=== PATIENT | male | born 1955 | race Caucasian/White ===

== ENCOUNTER 2017-10-24 10:57 | Inpatient (IN) | payer BC ==
[2017-10-24 11:27] LABS: #Basophils 0.1 thou/uL (0.0-0.2); #Eosinphils 0.3 thou/uL (0.0-0.7); #Lymphocytes 2.8 thou/uL (1.20-3.40); #Monocytes 0.9 thou/uL (0.11-0.59); #Neutrophils 7.5 thou/uL (1.40-6.50); %Eosinophils 2.6 % (0.0-10.0); %Lymphocytes 23.8 % (21.0-51.0); %Monocytes 7.6 % (0.0-10.0); %Neutrophils 65.1 % (42.0-75.0); Mean Corpuscular HGB CONC 32.1 g/dL (32.0-36.0); Mean Corpuscular Hemoglobin 31.3 pg (27.0-31.0); Mean Corpuscular Volume 97.3 fl (80.0-94.0); Mean Platelet Volume 9.1 fL (7.4-10.4); Platelet Count 224 thou/uL (130-400); RBC Distribution Width 15.1 % (11.5-14.5); Red Blood Cell (RBC) Count 4.78 mill/uL (4.70-6.10); White Blood Cell (WBC) Count 11.6 thou/uL (4.8-10.8)
[2017-10-24 11:49] LABS: CKMB 1.3 ng/mL (0-6.6)
[2017-10-24] MEDS ORDERED: Aspirin 325 MG TAB ONE (11:49)
--- NOTE | 2017-10-24 11:59 | RAD ---
PORTABLE AP CHEST X-RAY: 10/24/2017 HISTORY: Chest pain and generalized weakness. COMPARISON: 09/19/2015 FINDINGS: Cardiac silhouette and pulmonary vasculature are within normal limits. The lungs are clear. The end otracheal tube has been removed compared to the prior exam, and pleural and parenchymal changes at th e right lung base have resolved. IMPRESSION: 1. No acute cardiopulmonary process. 2. Resolution of pleural and parenchymal changes at the right lung base. POS: MILEY
[2017-10-24 12:39] LABS: Calcium 9.7 mg/dL (7.8-10.44); Chloride 107 mmol/L (98-107); Potassium 4.3 mmol/L (3.5-5.1); Sodium 139 mmol/L (136-145)
[2017-10-24 12:40] LABS: Globulin 3.6 g/dL (2.4-3.5); Glucose 135 mg/dL (80-115); Protein, Total 7.6 g/dL (5.8-8.1)
[2017-10-24 12:41] LABS: Anion Gap 13 mmol/L (10-20); Carbon Dioxide 23 mmol/L (23-31)
[2017-10-24 12:42] LABS: Bilirubin, Total 0.3 mg/dL (0.2-1.2)
[2017-10-24 12:43] LABS: Alkaline Phosphatase 87 U/L (40-150); Calc. Creatinine Clearance 0 mL/min (70-130); Estimated GFR-MDRD 68
[2017-10-24 12:44] LABS: BUN (Urea Nitrogen) 20 mg/dL (8.4-25.7)
[2017-10-24 12:45] LABS: AST (SGOT) 23 U/L (5-34)
[2017-10-24 12:46] LABS: ALT (SGPT) 24 U/L (8-55); CK (CPK) 94 U/L (30-200)
[2017-10-24] MEDS ORDERED: ISOVUE-370 76%-LOCM 1 ML ONE (13:43)
--- NOTE | 2017-10-24 13:55 | CT ---
CTA OF THE THORAX UTILIZING IV CONTRAST WITH PE PROTOCOL AND 3D REFORMATTED IMAGING: INDICATIONS: Chest pain. History of atrial fibrillation, now with indigestion, pain extending into both arms, and hypotension. FINDINGS: No central or segmental pulmonary embolus is evident. There are coronary artery and thoracic aortic calcifications. No focal consolidation, pleural effusion, or pneumothorax is evident. An area of xavier bsegmental atelectasis is seen within the lingula. No enlarged lymph nodes are evident. There is mild fatty infiltration of the liver. The visualized adrenal glands appear within normal li mits. There is scattered degenerative and osteoarthritic change. IMPRESSION: No central or segmental pulmonary embolus demonstrated. POS: MILEY
[2017-10-24] MEDS ORDERED: Enoxaparin Sodium 100 MG/ML SYRINGE ONE (16:15)
[2017-10-24 17:53] LABS: Troponin I 2.131 ng/mL (< 0.028)
[2017-10-24] MEDS ORDERED: Morphine 5 MG/ML SYRINGE SLOW IVP PRN (19:30)
[2017-10-24] MEDS ORDERED: Nitroglycerin 0.4 MG TAB (25 Tab Bottle) SL PRN (19:31)
[2017-10-24] MEDS ORDERED: Ondansetron HCl/PF 4 MG/2 ML Vial SLOW IVP PRN (19:32)
[2017-10-24] MEDS ORDERED: [UNRECOGNIZED DRUG - REMARK] FS SCH ×2 (19:45)
[2017-10-24 20:25] VITALS: BMI 41.1
[2017-10-24] MEDS ORDERED: Enoxaparin Sodium 100 MG/ML SYRINGE SC SCH (21:00)
[2017-10-24] MEDS ORDERED: Enoxaparin Sodium 30 MG/0.3 ML SYRINGE SC SCH (21:00)
[2017-10-24] MEDS: Rosuvastatin 20 MG TAB PO SCH (21:45)
[2017-10-24] MEDS: Zolpidem Tartrate 5 MG TAB PO SCH (21:45)
--- NOTE | 2017-10-25 04:37 | CON ---
DATE OF CONSULTATION: 10/24/2017 HISTORY: Kenyon Gibson is a 62-year-old white male who has been evaluated by Dr. Stevens in the past with abnormal EKG, although this was in 2009. He has had problems with somewhat labile blood pressure recently. He denies any history of rapid heartbeat or chest discomfort. Approximately 10:30 AM today, he noted that his heart was beating very rapidly, he had pressure in his chest and took his blood pressure, it was 93/53 with a pulse of 193. He was somewhat diaphoretic with this and short of breath. Ultimately his family brought him to the hospital here. Soon after he was here , his atrial fibrillation converted to sinus rhythm and I do not think he has given anything specifically for his atrial fibrillation. He was given Lovenox 1 mg per kilograms subcu as well as an aspirin, and intravenous fluids. He states that his chest pressure resolved when his rapid heartbeat went away. PAST MEDICAL HISTORY: Hypertension, which has been difficult to control recently, hyperlipidemia, hypothyroidism, obesity. MEDICATIONS: Fish oil 1000 daily, levothyroxine 50 mcg daily, allopurinol 300 daily, sulfasalazine 500 mg b.i.d., Crestor 20 mg daily, Vascepa 1 gram b.i.d., Edarbi 40 mg daily. ALLERGIES: None. OPERATIONS: None. SOCIAL HISTORY: The patient smokes 1 pack per day. He occasionally drinks. FAMILY HISTORY: Negative for cardiac. PHYSICAL EXAMINATION: VITAL SIGNS: 139/94, pulse of 77. HEENT: PERRL. NECK: Supple. CHEST: Clear. CARDIAC: S1 and S2 are normal, without any S3, S4 or murmurs. ABDOMEN: Normal bowel sounds. Abdomen is quite obese. EXTREMITIES: Revealed no clubbing, cyanosis or edema. NEUROLOGIC: Grossly intact. SKIN: Warm and dry. LABORATORY DATA: EKG revealed atrial fibrillation with fast ventricular response with a rate of 158 per minute, possible old inferior infarct and significant ST segment depression in I and L. After he converted, EKG shows probable Delta wave inV2 through V5 consistent with Ngvak-Prbntfobj-Ukten. No old EKGs are available for comparison. Hemoglobin 15.0, hematocrit 46.5, white count 11,600, platelets 224,000. Chemistry: Sodium 139, potassium 4.3, chloride 107, carbon dioxide 23, BUN 20, creatinine 1.10, troponin I is up to 2.131. TSH is normal. BNP 36.6. IMPRESSION: 1. Hzc-LF-nshmmha elevation myocardial infarction. 2. Atrial fibrillation with fast ventricular response which spontaneously converted to sinus rhythm. With some of his medication changes, it is uncertain if he has been on beta dejuan in the past. 3. 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 4. Hyperlipidemia. 5. Hypothyroidism. 6. Obesity. 7. Smoker. PLAN: Echocardiogram will be performed. The patient will be kept n.p.o. for possible cardiac catheterization in the morning. DION
[2017-10-25 05:51] LABS: Anion Gap 12 mmol/L (10-20); BUN (Urea Nitrogen) 17 mg/dL (8.4-25.7); Calc. Creatinine Clearance 181 mL/min (70-130); Carbon Dioxide 24 mmol/L (23-31); Cardiac Risk 3.7 (Less than 4.5); Chloride 106 mmol/L (98-107); Cholesterol 122 mg/dl (< 200 Desired); Estimated GFR-MDRD Greater than 90; Glucose 99 mg/dL (80-115); HDL Cholesterol 33 mg/dL (>60 Neg Risk); LDL Cholesterol, Calculated 67 mg/dL; Potassium 4.3 mmol/L (3.5-5.1); Sodium 138 mmol/L (136-145); Triglycerides 108 mg/dL (Less than 150); Uric Acid 5.1 mg/dL (3.5-7.2)
--- NOTE | 2017-10-25 05:58 | HP ---
DATE OF ADMISSION: 10/24/2017 CHIEF COMPLAINT: Cardiac arrhythmia with elevated troponins, new onset atrial fibrillation with WPW. HISTORY OF PRESENT ILLNESS: Patient is a 62-year-old male who had had some irregular heartbeats in b lood pressure for several weeks as it turns out, but on this particular episode, his daughter came in this morning, in his home when daughter noticed he was pale and sweating. They were unable to get b lood pressure on him. His heart rate turns out was 180. She called 911, blood pressure with the EMS arriving was 160/90, later dropped down to 93/53, pulse was 193. He had severe indigestion and pain that radiated up into both arms. Patient's risk factors include hypertension, smoking, hyperlipidemi a. He does use aspirin, which was ordered daily, so he has some noncompliance as well. The patient arrived and had self-converted from atrial fibrillation into normal sinus rhythm upon arrival. PAST MEDICAL HISTORY: Includes aforementioned hypertension, hyperuricemia, GERD, dyslipidemia, tobac co abuse, irritable bowel syndrome, hypothyroidism. PAST SURGICAL HISTORY: Negative. PAST PSYCHIATRIC HISTORY: Negative. SOCIAL HISTORY: Drinks socially every week. Denies drug use. Uses tobacco daily, has smoked for 30 years, 1 pack per day. FAMILY HISTORY: His father and had his first UT at 35. ALLERGIES: No known drug allergies. MEDICATIONS ON ADMISSION: Include fish oil 1000 mg 2 a day, levothyroxine 50 mcg q. day, allopurinol 300 mg q. day, sulfasalazine 500 mg b.i.d., Crestor 20 mg at bedtime, Vascepa 1 gram b.i.d., Edarbi 40 mg q. day. REVIEW OF SYSTEMS: Constitutional: Denies fever, chills, malaise. Eyes are negative for blurred vi richard or pain. ENT: Negative for rhinorrhea or sores congestion. Neck: Negative for pain, range of motion or mass. Chest: Negative for coughing, congestion. Heart: Significant for the palpitation s, pain that radiating into his arms, indigestion. Chest: The patient did admit to some shortness o f breath. GI: Negative for nausea, diarrhea, constipation. Musculoskeletal: Negative for myalgias and arthralgias. Skin: Negative for rash or lesions. Neurologic: Negative for focal weakness and mental status changes. Psychiatric: Negative for anxiety, depression. Allergy/immunologic: Negat bebeto for food allergies or environmental allergies. PHYSICAL EXAMINATION: VITAL SIGNS: On admission, blood pressure 111/74, pulse 76, respirations 14, temperature 98.2, pain 5/10, O2 saturation 95% on room air. GENERAL: Obese male, alert, oriented, and cooperative. HEENT: Normocephalic and atraumatic. Pupils are equal, round, and reactive to light. Extraocular m uscles are intact. TMs, nares, pharynx are clear. NECK: Supple, trachea midline, no mass, no bruits. CHEST: Clear to auscultation. HEART: Regular rate and rhythm without murmur at this time. ABDOMEN: Obese, nontender. No organomegaly appreciated. : Deferred. EXTREMITIES: Without clubbing, cyanosis, or edema. Normal range of motion present. SKIN: No rashes or lesions. NEUROLOGIC: Cranial nerves are intact. Mental status clear. Gait and cerebellar function intact. Sensory exam is intact. LABORATORY AND X-RAY FINDINGS: Lab work on admission showed WBC is 11.6, hemoglobin 15.0, hematocrit 46.5 with platelets at 244. D-dimer elevated at 0.55. Sodium 139, potassium 4.3, chloride 107, CO2 of 23, BUN 20, creatinine 1.1, glucose 135, CK-MB 3, initial troponin I 0.03, which they went to 1.1 3 and then at 2.1. TSH is 4.44. Chest x-ray shows no acute disease. EKG shows changes of Frantz-Par kinson-White. ASSESSMENT: 1. He has new onset atrial fibrillation with Bgrcq-Agexdlzch-Umhku. 2. Secondary elevated troponins due to probable demand ischemia. 3. Hypertension. 4. Dyslipidemia. 5. Noncompliance with medicine and tobacco abuse. PLAN: We will do echocardiogram, Cardiology consultation, and serial re-evaluation. He will be cont inued on Lovenox 1 mg/kg q.12 hours as well as daily aspirin.
[2017-10-25] MEDS: Levothyroxine Sodium 75 MCG TAB PO SCH (06:18)
[2017-10-25] MEDS ORDERED: Sodium Chloride 0.9% 1,000 ML IV SCH ×2 (06:45→13:22)
[2017-10-25] MEDS ORDERED: Aspirin 325 MG TAB PO SCH (09:00)
[2017-10-25] MEDS ORDERED: Enoxaparin Sodium 30 MG/0.3 ML SYRINGE SC SCH (09:00)
[2017-10-25] MEDS ORDERED: Enoxaparin Sodium 100 MG/ML SYRINGE SC SCH (09:00)
[2017-10-25] MEDS ORDERED: FLU VACC QS2017-18 36 mo. & older 0.5 ML SYRINGE IM ONE (09:00)
--- NOTE | 2017-10-25 09:26 | ULT ---
ULTRASOUND RENAL BILATERAL with DOPPLER: History: Ultrasound of renal arteries. Comparison: None. FINDINGS: Right kidney measures 11.8 x 6.2 x 6 cm and the left kidney measures 11.3 x 6.6 x 6.5 cm. Abnormal in creased hepatic echotexture is seen incidentally. No renal mass, hydronephrosis, or abnormal calcifications. The aortic peak systolic velocity is 41 cm /sec. The right renal artery peak systolic velocity measures 82 cm/sec and the left renal artery peak systolic velocity measures 71 cm/sec. The resistive indices of the arcuate arteries is normal on the right with slight elevation of left renal arcuate arteries resistive indices measuring up to 0.71. IMPRESSION: 1. Mild increased resistive indices in the left renal arcuate arteries reflective of mild medical chandrika al disease. 2. No abnormally elevated peak systolic velocities within the renal arteries to suggest stenosis. POS: TPC
[2017-10-25] MEDS ORDERED: Heparin 10,000 UNITS/1 ML VIAL ONE (10:10)
[2017-10-25] MEDS ORDERED: Midazolam HCl 2 mg/2 ml Vial ONE (11:43)
[2017-10-25] MEDS ORDERED: Fentanyl 100 MCG/2 ML VIAL ONE (11:43)
[2017-10-25] MEDS ORDERED: Bivalirudin 250 MG VIAL ONE (12:05)
[2017-10-25] MEDS ORDERED: Clopidogrel Bisulfate 300 MG TAB ONE (12:07)
[2017-10-25] MEDS ORDERED: Nitroglycerin 100MG/250ML BOT 250 ML ONE (12:12)
[2017-10-25] MEDS ORDERED: Iopamidol 370 76% 100 ML VIAL ONE (12:27)
[2017-10-25] MEDS ORDERED: Iopamidol 370 76% 50 ML VIAL FS ONE (12:27)
[2017-10-25] MEDS ORDERED: Nitroglycerin 0.4 MG TAB 1 EACH SL PRN (13:20)
[2017-10-25] MEDS ORDERED: Morphine 5 MG/ML SYRINGE SLOW IVP PRN (13:28)
--- NOTE | 2017-10-25 16:29 | CCL ---
PROCEDURE: Left heart catheterization, selective coronary arteriography, left ventriculography, bare metal stent placement in the mid and distal LAD and in the proximal circumflex. INDICATION: Non-STEMI. Patient was brought to cardiac grinding and polishing laborer. Right groin was prepped and draped in usual fashion. 1% l idocaine was infiltrated. A 6 Icelandic sheath was placed into the right femoral artery and heparin 300 0 units was given. A Icelandic angulated pigtail was inserted pressure obtained and left ventriculogram was performed using 30 mL of contrast at 12 mL second in an 30 degree projection. The pressure obta ined and the pigtail was removed. A 6-Icelandic Shaun left 4 followed by 6 Icelandic Shaun right 4 was used for coronary arteriography. Angiomax bolus and drip were given. The patient was given aspirin 324 mg and Plavix 600 mg p.o. A 6 Icelandic Shaun left 5 guide catheter was inserted. A floppy choice wire was advanced to the distal LAD. The more distal LAD lesion was predilated with an Emerge 2.5 x 15 mm balloon. Intracoronary ni troglycerin 200 mcg was given. The Emerge was removed and Rebel 2.75 x 28 mm stent was then position ed and deployed. The mid portion of the stent was postdilated with NC Emerge 3.0 x 12 mm and then a 3.25 x 12 mm Emerge NC. In the mid LAD, Rebel 3.5 x 12 mm stent was positioned and deployed taking care not to overlap the septal branch. The result was excellent. Attention was then turned to the proximal circumflex. The floppy choice wire was directed into the p roximal circumflex and Rebel 3.0 x 12 mm stent was then positioned and deployed with excellent result s. The sheath was then sutured in place. The patient was transferred to the PCU in stable condition . RESULTS OF PRESSURES: Aorta 163/89 mean 120. Left ventricle 163/23. LEFT VENTRICULOGRAM: There was mild distal anterior hypokinesis with ejection fraction of 50-55%. CORONARY ARTERIOGRAPHY: . 1. The left main was normal. 2. The LAD had a high diagonal. There was a 60-70% mid LAD lesion after the high first diagonal, 50 % mid lesion, and then 80% distal lesion. 3. The circumflex had an 80% proximal stenosis. 4. The right coronary artery was large with 20% proximal stenosis, 20% distal stenosis. INTERVENTION RESULTS: The distal LAD lesion was reduced from 80 to 20%. The mid LAD lesion was reduced from 60-70% to 0%. The proximal circumflex lesion was reduced from 80 to 0%. IMPRESSION: 1. Two-vessel coronary artery disease (left anterior descending and circumflex). 2. Mild left ventricular dysfunction. 3. Successful bare metal stent placement in the distal LAD, mid LAD and proximal circumflex.
[2017-10-25] MEDS: Amiodarone 200 MG TAB PO SCH (20:50)
[2017-10-25] MEDS: Zolpidem Tartrate 5 MG TAB PO SCH (20:50)
[2017-10-25] MEDS: Rosuvastatin 20 MG TAB PO SCH (20:50)
--- NOTE | 2017-10-25 21:04 | EKG ---
Test Reason : POST PTCA STENTS X 3 Blood Pressure : / mmHG Vent. Rate : 065 BPM Atrial Rate : 065 BPM P-R Int : 124 ms QRS Dur : 124 ms QT Int : 462 ms P-R-T Axes : 007 -39 087 degrees QTc Int : 480 ms Sinus rhythm with Premature supraventricular complexes Zsgoz-Jryvqnhhz-Nmctk Abnormal ECG When compared with ECG of 25-OCT-2017 07:06, (Unconfirmed) Premature supraventricular complexes are now Present Confirmed by EVELINE VIERA ([id number]) on 10/25/2017 9:03:51 PM Referred By: HALEY Confirmed By:EVELINE VIERA
--- NOTE | 2017-10-25 21:13 | EKG ---
Test Reason : Blood Pressure : / mmHG Vent. Rate : 068 BPM Atrial Rate : 068 BPM P-R Int : 104 ms QRS Dur : 120 ms QT Int : 442 ms P-R-T Axes : -10 -39 098 degrees QTc Int : 469 ms Normal sinus rhythm Gjajz-Tqtvkzbub-Davow Abnormal ECG When compared with ECG of 24-OCT-2017 13:01, (Unconfirmed) Premature supraventricular complexes are no longer Present Confirmed by EVELINE VIERA ([id number]) on 10/25/2017 9:12:44 PM Referred By: HALEY Confirmed By:EVELINE VIERA
[2017-10-26 05:35] LABS: #Basophils 0.1 thou/uL (0.0-0.2); #Eosinphils 0.2 thou/uL (0.0-0.7); #Lymphocytes 1.5 thou/uL (1.20-3.40); #Neutrophils 7.2 thou/uL (1.40-6.50); %Basophils 0.6 % (0.0-1.0); %Lymphocytes 14.8 % (21.0-51.0); %Neutrophils 72.6 % (42.0-75.0); Hemoglobin 12.4 g/dL (14.0-18.0); Mean Corpuscular Hemoglobin 31.2 pg (27.0-31.0); Mean Corpuscular Volume 94.7 fl (80.0-94.0); Mean Platelet Volume 8.6 fL (7.4-10.4); Platelet Count 204 thou/uL (130-400); RBC Distribution Width 14.5 % (11.5-14.5); Red Blood Cell (RBC) Count 3.98 mill/uL (4.70-6.10)
[2017-10-26] MEDS: Levothyroxine Sodium 75 MCG TAB PO SCH (06:14)
--- NOTE | 2017-10-26 06:47 | CON ---
DATE OF CONSULTATION: 10/25/2017. ELECTROPHYSIOLOGY CONSULTATION REPORT REFERRING PHYSICIAN: Jason Sellers MD I am seeing Mr. Gibson at our [facility] Telemetry Floor as an electrophysiologic business consultant. His problems are: 1. WPW syndrome. A. An EKG from this admission reveals prominent delta waves, short DE interval. B. Episode of atrial fibrillation with rapid ventricular rates that converted to sinus rhythm. 2. Zcn-JM-sxyavncdv myocardial infarction. A. Left heart catheterization 10/24/2017 reveals 2-vessel coronary artery disease requiring stenting of the mid and distal LAD as well as the proximal circumflex artery performed on 10/25/2017. 3. Normal LVEF at 55% to 60%, moderate mitral regurgitation, mild tricuspid regurgitation, mild left atrial enlargement on echo 10/25/2017. 4. Coronary artery risk factors. A. Dyslipidemia. B. Tobacco abuse. C. Morbid obesity. D. Hypertension. 5. History of irritable bowel syndrome. 6. Hypothyroidism, replaced. 7. History of GERD. ALLERGIES: None noted. MEDICATIONS AT HOME: Included fish oil supplements, levothyroxine, allopurinol , sulfasalazine, Crestor, Vascepa, and Edarbi. SUBJECTIVE: Mr. Gibson is here with an episode of chest tightness, palpitations , diaphoresis, and irregular heart beating. His blood pressure was low, heart rate was elevated by EMS. Fluctuating blood pressure from 160 to 90 systolic were seen, pulse rate up to 193 beats per minute. Indigestion-like chest pains radiating to both arms were noted. He was noted to be in atrial fibrillation, but in the ER, he spontaneously went back to sinus rhythm. He had no neurological deficits. No bleeding issues. No fever, chills, or cough. No stroke-like symptoms. No PND, orthopnea, or lower extremity edema to suggest fluid overload. REVIEW OF SYSTEMS: Rest of 12-point system was otherwise unremarkable. PAST MEDICAL HISTORY: As above. SOCIAL HISTORY: The patient is a smoker. Denies ETOH or drug abuse. FAMILY HISTORY: Noncontributory, although supposedly father had also early heart attacks. DATABASE: The EKG is reviewed initially revealing atrial fibrillation with rapid rates. A wide complex irregular rhythm is seen. RR is about 320 milliseconds noted. Subsequent EKG reveals sinus rhythm at 65 beats per minute with marked preexcitation, with negative in V1, positive in lead 1 and aVL , negative in aVR, and negative lead II are seen. Prior EKG from the past revealed sinus rhythm where preexcitation was not prominent at all. LABORATORY DATA: The white count is 11.6, hemoglobin 15, platelet count is 224. Sodium 139, potassium 4.3, BUN 50, creatinine is 1.1. AST and ALT are 23 and 24. Troponin I is 1.13 and 2.13 consecutively. ASSESSMENT AND PLAN: Mr. Gibson is a 62-year-old man with prior history of hypertension, diabetes, obesity, who was experiencing increasing frequency of palpitations with fluctuating blood pressures. He also had chest pains and indeed with this current episode, he had okj-ZO-qylyrqnmh myocardial infarction. His EKGs are clearly indicative of WPW syndrome and preexcitation possibly left posterobasal or septal location or posteroseptal location. We did discuss the significance of this finding. I did detail to them the likely abnormal accessory pathway presence. Also, the risk with associated atrial fibrillation and accessory pathway leading to very rapid ventricular rates. On the other hand, he underwent LAD/CX stenting supplying significant large territory after recent oua-WR-rrsllljhp myocardial infarction. Although clearly EP study would be indicated, which could include ablating his accessory pathway, even considering a pulmonary venous isolation procedure as well. At this particular time, it might not be more suitable for that hence the above- mentioned myocardial infarction and large territory LAD stenting. Also, anticoagulation will be necessary following that procedure, which will interfere with the additional dual-antiplatelet therapy necessary for the following month. Instead, at this point, I think it is more reasonable to consider suppressing the atrial fibrillation with IV amiodarone, hopefully also reducing the rapid AV accessory conduction in case it recurs. Risks, benefits were detailed. I will start him on amiodarone. I discussed the potential side effects of this drug as well. PLAN: Consider EP study ablation about 6 weeks from now. DION
[2017-10-26 07:46] LABS: Albumin 3.9 g/dL (3.4-4.8)
[2017-10-26 07:47] LABS: Chloride 105 mmol/L (98-107); Potassium 4.1 mmol/L (3.5-5.1); Sodium 136 mmol/L (136-145)
[2017-10-26 07:48] LABS: Calcium 9.3 mg/dL (7.8-10.44)
[2017-10-26 07:49] LABS: Globulin 3.1 g/dL (2.4-3.5); Glucose 145 mg/dL (80-115)
[2017-10-26 07:50] LABS: Anion Gap 13 mmol/L (10-20); Carbon Dioxide 22 mmol/L (23-31)
[2017-10-26 07:51] LABS: Alkaline Phosphatase 79 U/L (40-150); Bilirubin, Total 0.7 mg/dL (0.2-1.2)
[2017-10-26 07:52] LABS: Calc. Creatinine Clearance 175 mL/min (70-130); Estimated GFR-MDRD Greater than 90
[2017-10-26 07:53] LABS: BUN (Urea Nitrogen) 12 mg/dL (8.4-25.7)
[2017-10-26 07:54] LABS: ALT (SGPT) 24 U/L (8-55); AST (SGOT) 20 U/L (5-34)
[2017-10-26] MEDS ORDERED: Enoxaparin Sodium 100 MG/ML SYRINGE SC SCH (09:00)
[2017-10-26] MEDS ORDERED: Enoxaparin Sodium 30 MG/0.3 ML SYRINGE SC SCH (09:00)
[2017-10-26] MEDS: Ramipril 5 MG CAP PO SCH (09:23)
[2017-10-26] MEDS: Clopidogrel Bisulfate 75 MG TAB PO SCH (09:24)
[2017-10-26] MEDS: Amiodarone 200 MG TAB PO SCH ×2 (09:24→20:38)
[2017-10-26 12:41] LABS: Bilirubin Negative (Negative); Blood, Urine Negative (Negative); Clarity CLEAR (Clear); Glucose, Urine (Dipstick) Negative (Negative); Leukocyte Trace (Negative); Nitrite Negative (Negative); Protein, Urine (Dipstick) Negative (Neg-Trace); Urobilinogen 0.2 mg/dL (0.2-1.0); pH, Urine 6.5 (5.0-9.0)
[2017-10-26 12:42] LABS: Bacteria/HPF 3+ HPF (None Seen); Hyaline Casts/LPF 0-3 HYALINE CAST LPF (0-3 Hyaline); Pathc Cast-AUWi Flag 0.13 (0-2.49); RBC/HPF 0-3 HPF (0-3); Squamous Epithelial None Seen HPF (0-3); WBC/HPF 0-3 HPF (0-3)
[2017-10-26] MEDS: Zolpidem Tartrate 5 MG TAB PO SCH (20:39)
[2017-10-26] MEDS: Rosuvastatin 20 MG TAB PO SCH (20:39)
--- NOTE | 2017-10-26 21:09 | PRG ---
DATE OF SERVICE: 10/26/2017 ELECTROPHYSIOLOGY FOLLOWUP NOTE SUBJECTIVE: Mr. Gibson seems to be doing better. He is one day after his heart catheterization and stent placement. He has no recurrent palpitations. Denies chest pains, minimal dyspnea. OBJECTIVE: VITAL SIGNS: Blood pressure is 162/77, heart rate 81, respiration is 17, temperature 97.4 degrees Fahrenheit. GENERAL: Alert and oriented man with markedly elevated BMI, in no apparent distress. NECK: Supple. Jugular veins not distended. CHEST: Coarse without crackles. CARDIOVASCULAR: Heart sounds are regular to rate and rhythm. No murmur or gallop. ABDOMEN: Benign. Bowel sounds positive. EXTREMITIES: Lower extremities without edema, clubbing or cyanosis. DATABASE: Telemetry strip reveals sinus rhythm, no atrial fibrillation. The EKG reviewed from today reveals sinus rhythm with short NJ a dn WPW which are positive in lead I and aVL, V2 to V6, but negative in the inferior leads and in V1. LABORATORY DATA: White cell is 10.7, hemoglobin 12.4, platelet count is 204. Sodium 136, potassium 4.1, BUN is 12, creatinine 0.82. ASSESSMENT AND PLAN: Ms. Gibson is a 62-year-old man with prior history of morbid obesity who presented with palpitations and non-ST myocardial infarction , underwent stent placement in his left anterior descending and circumflex artery. He has clear Zqumd-Vuuussiil-Xofsp syndrome with atrial fibrillation with rapid heart rates up to 190 beats per minute, associated dizziness and hypertension. These episodes though spontaneously terminate. Currently, he seems to be doing well after initiating amiodarone therapy. PLAN: 1. Continue amiodarone loading. I would continue 400 mg amiodarone for a week , then twice a day, then 200 mg twice a day for another 2 weeks and then 200 mg daily after that. I would like to see him back in the office in about 6 weeks, at which point arrangements will be made for ablation procedure after recovery from myocardial infarction and stent placement. 2. Along with the accessory pathway ablation, consideration could be made for pulmonary venous isolation as well. 3. Status post stent placement on dual antiplatelet therapy, bare metal stents are noted, likely can stop Plavix after 4 weeks. 4. Continue dual antiplatelet therapy for now. We will hold off on further oral anticoagulant, but consider switching Plavix to a NOAC after the initial 4 weeks complete. 5. Morbid obesity. Recommend weight loss. 6. We will follow with you. MTDD
--- NOTE | 2017-10-26 21:15 | EKG ---
Test Reason : Blood Pressure : / mmHG Vent. Rate : 081 BPM Atrial Rate : 081 BPM P-R Int : 114 ms QRS Dur : 124 ms QT Int : 426 ms P-R-T Axes : -11 -38 098 degrees QTc Int : 494 ms Normal sinus rhythm Ukryu-Xplvicpzx-Rnukj Abnormal ECG When compared with ECG of 25-OCT-2017 13:45, Premature supraventricular complexes are no longer Present Confirmed by EVELINE VIERA ([id number]) on 10/26/2017 9:14:27 PM Referred By: HALEY Confirmed By:EVELINE VIERA
[2017-10-27] MEDS: Levothyroxine Sodium 75 MCG TAB PO SCH (05:23)
[2017-10-27 05:46] LABS: Anion Gap 13 mmol/L (10-20); BUN (Urea Nitrogen) 14 mg/dL (8.4-25.7); Calc. Creatinine Clearance 173 mL/min (70-130); Calcium 8.9 mg/dL (7.8-10.44); Carbon Dioxide 22 mmol/L (23-31); Chloride 107 mmol/L (98-107); Estimated GFR-MDRD Greater than 90; Glucose 99 mg/dL (80-115); Potassium 4.1 mmol/L (3.5-5.1); Sodium 138 mmol/L (136-145)
[2017-10-27] MEDS: Ramipril 5 MG CAP PO SCH (09:52)
[2017-10-27] MEDS: Amiodarone 200 MG TAB PO SCH (09:52)
[2017-10-27] MEDS: Clopidogrel Bisulfate 75 MG TAB PO SCH (09:52)
--- NOTE | 2017-10-27 11:12 | DIS ---
FINAL DIAGNOSES: 1. Hypertension. 2. Hyperlipidemia. 3. Non-ST elevated myocardial infarction. 4. Hypothyroidism. 5. Coronary artery disease status post stenting. 6. Ifptt-Pczajuwai-Dthcc. COMPLICATIONS: None. PROCEDURES: On 10/25/2017 the patient underwent a cardiac catheterization by Dr. Slelers and was fo und to have the left main was normal. The LAD had a high diagonal. There was 57% mid LAD lesion in the first diagonal, 50% mid lesion, 80% distal lesion, circumflex had an 80% proximal stenosis. The right coronary artery also had 20% distal stenosis. The distal LAD was reduced from 80 to 20%, the m id LAD was reduced from 57% to 0%, the proximal circumflex was reduced from 80 to 0%. CONSULTANTS: Dr. Zhang and Dr. Sellers. HOSPITAL COURSE: This is a pleasant gentleman who presented to the hospital with chest pain. He was found to have a non-elevated STEMI with a peak in his troponin. His white blood cell was 11.6, H&H was normal. His UA was normal. His CMP was normal with a BUN of 20, creatinine 1.10, his first trop onin was 1.130, second was 2.131. His EKG was abnormal. He was seen by Cardiology and underwent ang iographic evaluation as enumerated above. He tolerated the procedure well and had no complications. Dr. Zhang also did see the patient in consultation for WPW. The patient was started on Cordarone and then Dr. Zhang said that he would like to see him for an ablation procedure. The patient had no ches t pain. His vital signs were stable. His medication was adjusted accordingly. He was discharged ho mi on 10/27/2017 in stable condition. DIET: Controlled fat diet. ACTIVITIES: As tolerated by patient. DISCHARGE MEDICATIONS: 1. Zyloprim 300 mg every day. 2. Edarbi 40 mg daily. 3. Vitamin D 3000 units every day. 4. Fish oil 2000 mg every day. 5. Vascepa 1 gram b.i.d. 6. Levothyroxine 50 mcg. 7. Crestor 20 mg every day. 8. Amiodarone 400 mg b.i.d. for 2 weeks, then 1 b.i.d. for 2 weeks. 9. Aspirin 81 mg every day. 10. Plavix 75 mg daily. 11. Metoprolol 100 mg every day. 12. Altace 5 mg every day. FOLLOWUP: He will follow up with Roxi or Dr. Edwards in 1 week. He will also follow up with Cardi ology and EP as indicated. The patient verbalized understanding and all questions answered to his sa tisfaction.
--- NOTE | 2017-10-27 11:26 | PDOC.CTH ---
Cardiology Progress Note - Subjective Patient has done well overnight with any new cardiac complaints or concerns. He has been walking and OOB. No chest pain, heart racing, or palpitations. No dizziness or passing out. Planning on DC today - Objective Vital Signs Temp Pulse Resp BP BP Pulse Ox 10/27/17 09:52 153/84 H 10/27/17 08:00 97.7 F 70 18 153/84 H 96 10/27/17 03:15 98.8 F 75 18 146/83 H 96 Weight 295 lb 10/26/17 10/27/17 10/28/17 06:59 06:59 06:59 Intake Total 1560 1440 360 Output Total 1125 900 Balance 435 540 360 - Physical Examination General/Neuro: alert & oriented x3, NAD Neck: carotid US brisk, no JVD present Lungs: CTA, unlabored respirations Abdomen: no HSM, NT/ND - Telemetry Telemetry Rhythm: NSR - Labs Result Diagrams: 10/26/17 04:22 10/27/17 04:14 Troponin/CKMB CK-MB (CK-2) 1.3 ng/mL (0-6.6) 10/24/17 11:20 Troponin I 2.131 ng/mL (< 0.028) H* 10/24/17 17:16 - Assessment/Plan 1. Paroxysmal atrial fibrillation- on amiodarone, currently maintaining NSR. DC with amiodarone taper: 400mg BID x 7 days, then 200mg BID x 2 weeks, then 200mg daily there after. 2. WPW- patient will be seen in clinic as OP and is being scheduled for ablation in 6 weeks, given NSTEMI with PCI. 3. NSTEMI- s/p PCI with BMS, now on DAPT with plavix and ASA. managed by cardiology.
[2017-10-27 16:20] VITALS: BP 134/72; TEMP 97.8
== END 2017-10-27 13:10 | disposition home or self-care (01) | DRG 248 ==
LOC: ERS 10:57 → ERHOLD 14:00 → 2NO 18:08
PROVIDERS: ADMIT Specialist; ATTEND Specialist
PROC: 4A023N7 Measurement of Cardiac Sampling and Pressure, Left Heart, Percutaneous Approach (ICD-10-PCS; principal; 2017-10-25)
PROC: 02713EZ Dilation of Coronary Artery, Two Arteries with Two Intraluminal Devices, Percutaneous Approach (ICD-10-PCS; 2017-10-25)
PROC: B2111ZZ Fluoroscopy of Multiple Coronary Arteries using Low Osmolar Contrast (ICD-10-PCS; 2017-10-25)
PROC: B2151ZZ Fluoroscopy of Left Heart using Low Osmolar Contrast (ICD-10-PCS; 2017-10-25)
DX: I48.0 Paroxysmal atrial fibrillation (principal); I21.4 Non-ST elevation (NSTEMI) myocardial infarction; I24.8 Other forms of acute ischemic heart disease; I25.10 Atherosclerotic heart disease of native coronary artery without angina pectoris; E66.01 Morbid (severe) obesity due to excess calories; E11.9 Type 2 diabetes mellitus without complications; I10 Essential (primary) hypertension; E78.5 Hyperlipidemia, unspecified; E03.9 Hypothyroidism, unspecified; I45.6 Pre-excitation syndrome; F17.210 Nicotine dependence, cigarettes, uncomplicated; Z91.14 Patient's other noncompliance with medication regimen; K21.9 Gastro-esophageal reflux disease without esophagitis; Z68.39 Body mass index [BMI] 39.0-39.9, adult
CPT/HCPCS: 36415; 71045; 71275; 76700; 76770; 80048; 80053; 80061; 81001; 82550; 82553; 83880; 84443; 84484; 84550; 85025; 85347; 85379; 87077; 87086; 87186; 90471; 90682; 90732; 92928; 92929; 93005; 93010; 93306; 93458; 93798; 94760; 96360; 96361; 96372; 99152; 99153; J2270; A4216; C1725; C1769; C1876; C1887; G0008; G0009; J0583; J1644; J1650; J2250; J3010; Q2036

== ENCOUNTER 2018-01-02 07:05 | Observation (INO) | payer BC ==
[2018-01-02 07:32] LABS: #Eosinphils 0.4 thou/uL (0.0-0.7); #Lymphocytes 1.9 thou/uL (1.20-3.40); #Monocytes 1.2 thou/uL (0.11-0.59); #Neutrophils 6.1 thou/uL (1.40-6.50); %Basophils 0.4 % (0.0-1.0); %Eosinophils 3.9 % (0.0-10.0); %Lymphocytes 20.2 % (21.0-51.0); %Monocytes 12.1 % (0.0-10.0); %Neutrophils 63.4 % (42.0-75.0); Hemoglobin 13.4 g/dL (14.0-18.0); Mean Corpuscular HGB CONC 34.2 g/dL (32.0-36.0); Mean Corpuscular Hemoglobin 31.1 pg (27.0-31.0); Mean Corpuscular Volume 90.8 fl (80.0-94.0); Mean Platelet Volume 7.9 fL (7.4-10.4); Platelet Count 224 thou/uL (130-400); RBC Distribution Width 14.5 % (11.5-14.5); White Blood Cell (WBC) Count 9.6 thou/uL (4.8-10.8)
[2018-01-02 07:42] LABS: INR-International Normal Ratio 1.3; PTT 39.7 SEC (22.9-36.1); Prothrombin Time 16.1 SEC (12.0-14.7)
[2018-01-02 07:55] LABS: ALT (SGPT) 31 U/L (8-55); AST (SGOT) 31 U/L (5-34); Albumin 3.9 g/dL (3.4-4.8); Alkaline Phosphatase 78 U/L (40-150); Anion Gap 18 mmol/L (10-20); BUN (Urea Nitrogen) 18 mg/dL (8.4-25.7); Bilirubin, Total 0.5 mg/dL (0.2-1.2); Calc. Creatinine Clearance 142 mL/min (70-130); Calcium 8.8 mg/dL (7.8-10.44); Carbon Dioxide 17 mmol/L (23-31); Chloride 107 mmol/L (98-107); Estimated GFR-MDRD 74; Glucose 106 mg/dL (80-115); Potassium 4.2 mmol/L (3.5-5.1); Protein, Total 6.9 g/dL (5.8-8.1); Sodium 138 mmol/L (136-145)
[2018-01-02] MEDS ORDERED: Heparin 10,000 UNITS/1 ML VIAL ONE ×3 (09:14→12:50)
[2018-01-02] MEDS ORDERED: Phenylephrine HCL 10 MG/ML VIAL ONE (09:17)
[2018-01-02] MEDS ORDERED: Fentanyl 100 MCG/2 ML VIAL ONE (09:17)
[2018-01-02] MEDS ORDERED: Lidocaine 1% (PF) 30 ML VIAL ONE (09:19)
[2018-01-02] MEDS ORDERED: Promethazine HCl 25 MG/ML VIAL ONE (09:39)
[2018-01-02] MEDS ORDERED: Protamine Sulfate 50 MG/5 ML VIAL ONE (09:40)
[2018-01-02] MEDS ORDERED: Furosemide 40 MG/4 ML VIAL ONE (09:40)
[2018-01-02] MEDS ORDERED: Midazolam HCl 2 mg/2 ml Vial ONE ×2 (10:08→13:05)
[2018-01-02] MEDS ORDERED: Heparin 25,000 units/D5W 500 ML ONE (11:06)
[2018-01-02] MEDS ORDERED: Lidocaine 2% Jelly 5 ML TUBE ONE (11:56)
[2018-01-02] MEDS ORDERED: Isoproterenol 0.2 MG/1 ML AMP ONE ×2 (12:37→12:50)
[2018-01-02] MEDS ORDERED: Ondansetron HCl/PF 4 MG/2 ML Vial IVP PRN ×2 (14:08→14:22)
[2018-01-02] MEDS ORDERED: Promethazine HCl 25 MG/ML VIAL SLOW IVP PRN (14:08)
[2018-01-02] MEDS ORDERED: Morphine Sulfate 2 MG/ML SYRINGE SLOW IVP PRN (14:08)
[2018-01-02] MEDS ORDERED: diphenhydrAMINE 25 MG CAP PO PRN (14:22)
[2018-01-02] MEDS ORDERED: Bisacodyl 10 MG SUPP PR PRN (14:22)
[2018-01-02] MEDS ORDERED: Mag-Al 1200 mg/1200 mg/30 ML UDCUP PO PRN (14:22)
[2018-01-02] MEDS ORDERED: Acetaminophen 325 MG TAB PO PRN (14:22)
[2018-01-02] MEDS ORDERED: Temazepam 15 MG CAP PO PRN (14:22)
[2018-01-02] MEDS ORDERED: Bisacodyl 5 MG TAB PO PRN (14:22)
[2018-01-02] MEDS ORDERED: traMADol HCl 50 MG TAB PO PRN (14:22)
[2018-01-02] MEDS ORDERED: Silver Sulfadiazine 1% Cream 50 GM JAR TOP PRN (14:22)
[2018-01-02] MEDS ORDERED: Nitroglycerin 0.4 MG TAB (25 Tab Bottle) SL PRN (14:22)
[2018-01-02] MEDS ORDERED: Zolpidem Tartrate 5 MG TAB PO PRN (14:23)
--- NOTE | 2018-01-02 15:51 | OP ---
DATE OF PROCEDURE: 01/02/2018 REFERRING PHYSICIAN: Dr. Sellers Mr. Gibson is a 62-year-old man with history of coronary artery disease and recent myocardial infarction. He at that time was noted to have atrial fibrillation with rapid rates with preexcitation. He has also had baseline EKG suggestive of possible preexcitation. He is undergoing amiodarone therapy transiently which was stopped over 10 days ago. He is here for a pulmonary venous isolation procedure, possible axillary pathway ablation. PROCEDURE: The patient received deep sedation by Anesthesia specialist. After adequate sedation achieved the groins were prepped and draped, anesthetized using subcutaneous lidocaine. The left and right femoral veins were accessed. Three left side venous vein venous lines were started and 2 right-sided ones. On the left a 10 Telugu sheath for the ice catheter was placed, a preface sheath for the Duodeca catheter and a 6-Telugu sheath for a his bundle RV catheter octapolar catheter. From the right, the 2 transseptal sheaths were placed. After basic measurements and study we proceeded with transseptal puncture and under ice monitoring. Heparin was given at this time and repeated ACTs were measured to achieve over 350. Eventually a ThermoCool SF and FJ bidirectional ablation catheter and anterior mapping catheter was advanced to the right and left atrium. Left atrial map was obtained. A 3D map was obtained with Carto system and we proceeded upon pulmonary venous isolation procedure. All for veins were isolated with total of 55 ablation lesions were delivered with a total time is 2274 seconds. Following that isuprel stimulation was ensued and up to 10 mcg. Reconnected veins were re-ablated. Following that a ventricular extrastimuli testing was performed both by his bundle with prior history and pacing assessed on the left ventricle with the ablation catheter. No evident accessory pathway was demonstrated to be conducting antegrade or retrograde. The AV conduction also remained normal. FINDINGS: Baseline sinus rhythm, 700 milliseconds, TN 188, QRS 82, QT 420, AH 130, HV 55 milliseconds. The AV Wenckebach cycle length 310, RVW Wenckebach cycle 340, AV preeti ERP 400/200. VA 400/280 milliseconds. Dual AV preeti physiology was present without echo beats. The VA conduction was concentric earliest in CS 910. No atrial fibrillation or additional SVT was induced with repeated burst atrial and ventricular pacing. The ice catheter was used to monitor the transseptal procedure as well as monitor for any effusion during the ablation. No change in cardiac silhouette and no pericardial effusion was noted with an ice catheter in the end of the case. The ACTs were remeasured and the patient required additional 50 units of protamine and the sheaths were pulled in the quality lab technician. The patient tolerated procedure well, no obvious complications. CONCLUSION: 1. Successful pulmonary venous isolation procedure, isolating all 4 pulmonary veins. 2. No inducible atrial arrhythmias. 2. No evident accessory pathway present at this time. PLAN: Continue monitoring with recurrent pathway conduction. Consider reablation or at least repeat EP study if that occurs. MTDD
[2018-01-02] MEDS ORDERED: Heparin 30,000 units/30 ml VIAL ONE (16:04)
[2018-01-02] MEDS ORDERED: PHENYLEPHRINE-NS 100 MCG/ML 10 ML SYRINGE ONE (16:04)
[2018-01-02] MEDS ORDERED: PROPOFOL 200 MG/20 ML VIAL ONE (16:04)
[2018-01-02] MEDS ORDERED: Ondansetron HCl/PF 4 MG/2 ML Vial ONE (16:04)
[2018-01-02 16:40] VITALS: BMI 43.4
[2018-01-02] MEDS: Apixaban 5 MG TAB PO SCH (19:56)
[2018-01-02] MEDS ORDERED: ICOSAPENT ETHYL 1 GM PO SCH (21:00)
[2018-01-02] MEDS ORDERED: Rosuvastatin 20 MG TAB PO SCH (21:00)
[2018-01-03] MEDS ORDERED: Levothyroxine Sodium 75 MCG TAB PO SCH (06:00)
[2018-01-03] MEDS: Apixaban 5 MG TAB PO SCH (08:38)
[2018-01-03] MEDS ORDERED: Fish Oil 1,000 MG CAP PO SCH (09:00)
[2018-01-03] MEDS ORDERED: Allopurinol 300 MG TAB PO SCH (09:00)
[2018-01-03] MEDS ORDERED: Aspirin 81 mg Enteric Coated Tablet PO SCH (09:00)
[2018-01-03] MEDS ORDERED: Ramipril 5 MG CAP PO SCH (09:00)
[2018-01-03] MEDS ORDERED: Amiodarone 200 MG TAB PO SCH (09:00)
[2018-01-03 14:08] LABS: #Eosinphils 0.1 thou/uL (0.0-0.7); #Lymphocytes 1.9 thou/uL (1.20-3.40); #Monocytes 1.3 thou/uL (0.11-0.59); #Neutrophils 5.6 thou/uL (1.40-6.50); %Basophils 0.3 % (0.0-1.0); %Eosinophils 1.4 % (0.0-10.0); %Lymphocytes 21.1 % (21.0-51.0); %Monocytes 14.3 % (0.0-10.0); %Neutrophils 62.8 % (42.0-75.0); Hemoglobin 11.4 g/dL (14.0-18.0); Mean Corpuscular HGB CONC 32.8 g/dL (32.0-36.0); Mean Corpuscular Hemoglobin 30.9 pg (27.0-31.0); Mean Corpuscular Volume 94.3 fl (80.0-94.0); Mean Platelet Volume 8.4 fL (7.4-10.4); Platelet Count 166 thou/uL (130-400); RBC Distribution Width 14.4 % (11.5-14.5); Red Blood Cell (RBC) Count 3.69 mill/uL (4.70-6.10); White Blood Cell (WBC) Count 8.8 thou/uL (4.8-10.8)
[2018-01-03 14:38] LABS: Bilirubin Negative (Negative); Blood, Urine Moderate (Negative); Clarity CLEAR (Clear); Glucose, Urine (Dipstick) Negative (Negative); Leukocyte Trace (Negative); Nitrite Negative (Negative); Protein, Urine (Dipstick) Negative (Neg-Trace); Specific Gravity, Urine 1.015 (1.002-1.036)
[2018-01-03 14:44] LABS: Bacteria/HPF None Seen HPF (None Seen); Hyaline Casts/LPF 0-3 HYALINE CAST LPF (0-3 Hyaline); Pathc Cast-AUWi Flag 0.14 (0-2.49); Squamous Epithelial 0-3 HPF (0-3)
[2018-01-03 15:58] VITALS: BP 144/70; TEMP 98.1
--- NOTE | 2018-01-03 16:20 | DIS ---
This is VINITA Perdomo dictating for Dr. Norm Zhang. DATE OF ADMISSION: 01/02/2018 DATE OF DISCHARGE: 01/03/2018 ATTENDING PHYSICIAN: Dr. Norm Zhang. CONDITION ON DISCHARGE: Stable. FINAL DIAGNOSES: Paroxysmal atrial fibrillation, Snwvs-Pilonnejg-Knrvz/accessory pathway. PROCEDURES: Pulmonary venous isolation and ablation. HISTORY OF PRESENT ILLNESS: Mr. Temple is a very pleasant 62-year-old male with a history of coronary artery disease. He was hospitalized in the recent past for an acute PA, at which point he underwent multiple stents placed and was also found to have atrial fibrillation with RVR and preexcitation on EKG. 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 During the ablation, the patien t underwent successful pulmonary venous isolation isolating all 4 pulmonary veins. Paroxysmal atrial fibrillation was noted throughout the case. He had no inducible atrial arrhythmias post-ablation an d no evidence of accessory pathway was present during the study. The patient did go to the lab in no rmal sinus rhythm and did not require external cardioversion. Post-ablation, the patient has had an uneventful recovery. His Lee catheter was discharged and he has been maintaining normal sinus rhyt hm with rates in the 70s. He has had very brief runs of paroxysmal atrial tachycardia, no longer marcos n 5 seconds with increased activity. He has been asymptomatic of these. His groin sites are without complication and no hematoma and minimal tenderness are present. Vital signs have been stable with the exception of a low-grade fever. Most recent set of vitals are 98.7 degrees Fahrenheit, pulse 75, respirations 20, oxygen saturation 92% on room air, blood pressure 119/60, T-max in the past 24 hour s was 101.0. The patient has been up ambulating without difficulty, but is experiencing some slight shortness of breath. PHYSICAL EXAMINATION: GENERAL: Reveals he is alert and oriented. His speech is clear. His affect is appropriate. LUNGS: He does have some very fine crackles to the left lower lobe, otherwise respirations are clear to auscultation with respirations even and unlabored. HEART: Rate is irregularly irregular. ABDOMEN: Obese, soft, and nontender. SKIN: Warm and dry to touch without clubbing, cyanosis, and there is mild 1+ edema noted to bilatera l lower extremities. GENITOURINARY: Since having his Lee catheter removed, he has had some discomfort and burning with urination. LABORATORY DATA: Urinalysis was sent and CBC checked this morning. UA did reveal red blood cells as well as some white blood cells, negative for nitrites with a moderate amount of blood. No casts. C BC from today, WBC 8.8 (previously 9.6), otherwise unremarkable. Overall, the patient is eager to go home and will be treated prophylactically for a possible UTI with ciprofloxacin 500 mg b.i.d., as he was recently treated for UTI in 10/2017 with Bactrim. DISCHARGE MEDICATIONS: Prescriptions were provided for Lasix 40 mg daily x3 days to be taken with po tassium 20 mEq daily x3 days and then to take as needed for shortness of breath and swelling of the e xtremities. Prescriptions were also provided for Protonix 40 mg p.o. daily x30 days and Carafate 1 g jayla p.o. q.i.d. x2 weeks. Allopurinol 300 mg p.o. q.a.m., Eliquis 5 mg p.o. b.i.d., aspirin 81 mg da shelton, vitamin D3 daily, fish oil daily, levothyroxine 75 mcg p.o. q.a.m., metoprolol succinate 100 mg p.o. q.a.m., ramipril 5 mg p.o. q.a.m., rosuvastatin 20 mg p.o. at bedtime, tramadol 50 mg as needed. The patient will be given an event monitor in the mail to use post ablation for monitoring and will follow up in clinic in 4-6 weeks. ADDITIONAL INSTRUCTIONS: No soaking baths or lifting greater than 25 pounds for 7 days. We recommen d heart healthy diet and activity as tolerated after 1 week.
--- NOTE | 2018-01-08 08:37 | EKG ---
Test Reason : PREOP Blood Pressure : / mmHG Vent. Rate : 099 BPM Atrial Rate : 099 BPM P-R Int : 164 ms QRS Dur : 082 ms QT Int : 416 ms P-R-T Axes : 072 025 -20 degrees QTc Int : 533 ms Sinus rhythm with Premature supraventricular complexes T wave abnormality, consider inferior ischemia Prolonged QT Abnormal ECG Confirmed by RAHEEM MONET MD ([id number]) on 01/08/2018 8:36:45 AM Referred By: BRIAN Confirmed By:RAHEEM MONET MD
--- NOTE | 2018-01-08 08:39 | EKG ---
Test Reason : POST ABLATION Blood Pressure : / mmHG Vent. Rate : 074 BPM Atrial Rate : 074 BPM P-R Int : 170 ms QRS Dur : 088 ms QT Int : 478 ms P-R-T Axes : 059 008 -23 degrees QTc Int : 530 ms Normal sinus rhythm Cannot rule out Inferior infarct , age undetermined Prolonged QT Abnormal ECG When compared with ECG of 02-JAN-2018 07:59, (Unconfirmed) Premature supraventricular complexes are no longer Present Confirmed by RAHEEM MONET MD ([id number]) on 01/08/2018 8:39:22 AM Referred By: BRIAN Confirmed By:RAHEEM MONET MD
--- NOTE | 2018-01-08 08:42 | EKG ---
Test Reason : Blood Pressure : / mmHG Vent. Rate : 091 BPM Atrial Rate : 091 BPM P-R Int : 168 ms QRS Dur : 090 ms QT Int : 414 ms P-R-T Axes : 054 000 032 degrees QTc Int : 509 ms Normal sinus rhythm Prolonged QT Abnormal ECG When compared with ECG of 02-JAN-2018 14:32, (Unconfirmed) Nonspecific T wave abnormality has replaced inverted T waves in Inferior leads Confirmed by TIERNEY ABRAHAM, RAHEEM ([id number]) on 01/08/2018 8:41:47 AM Referred By: BRIAN Confirmed By:RAHEEM MONET MD
== END 2018-01-03 16:28 | disposition home or self-care (01) ==
LOC: CCL 07:05 → 2SW 14:22
PROVIDERS: ADMIT Internal Medicine Cardiovascular Disease; ATTEND Internal Medicine Cardiovascular Disease
PROC: 02583ZZ Destruction of Conduction Mechanism, Percutaneous Approach (ICD-10-PCS; principal; 2018-01-02)
PROC: 4A023FZ Measurement of Cardiac Rhythm, Percutaneous Approach (ICD-10-PCS; 2018-01-02)
PROC: 4A0234Z Measurement of Cardiac Electrical Activity, Percutaneous Approach (ICD-10-PCS; 2018-01-02)
PROC: 02K83ZZ Map Conduction Mechanism, Percutaneous Approach (ICD-10-PCS; 2018-01-02)
DX: I48.0 Paroxysmal atrial fibrillation (principal); I45.6 Pre-excitation syndrome; I25.10 Atherosclerotic heart disease of native coronary artery without angina pectoris; I25.2 Old myocardial infarction; Z95.5 Presence of coronary angioplasty implant and graft; Z79.82 Long term (current) use of aspirin; Z79.01 Long term (current) use of anticoagulants; Z79.899 Other long term (current) drug therapy
CPT/HCPCS: 36415; 76942; 80053; 81003; 81015; 85025; 85347; 85610; 85730; 93005; 93010; 93613; 93623; 93656; 93662; A4216; C1730; C1731; C1732; C1759; C1769; G0378; J1644; J1940; J2001; J2250; J2370; J2405; J2550; J2704; J2720; J3010

== ENCOUNTER 2020-01-15 22:42 | Observation (INO) | payer MEDICARE ==
[2020-01-15 23:37] LABS: #Basophils 0.1 thou/uL (0.0-0.2); #Eosinphils 0.2 thou/uL (0.0-0.7); #Lymphocytes 2.8 thou/uL (1.20-3.40); #Monocytes 0.6 thou/uL (0.11-0.59); #Neutrophils 5.3 thou/uL (1.40-6.50); %Basophils 0.9 % (0.0-1.0); %Eosinophils 1.7 % (0.0-10.0); %Lymphocytes 31.7 % (21.0-51.0); %Monocytes 6.6 % (0.0-10.0); %Neutrophils 59.1 % (42.0-75.0); Hemoglobin 14.4 g/dL (14.0-18.0); Mean Corpuscular HGB CONC 34.4 g/dL (32.0-36.0); Mean Corpuscular Hemoglobin 33.9 pg (27.0-31.0); Mean Corpuscular Volume 98.5 fL (78.0-98.0); Mean Platelet Volume 8.8 fL (7.4-10.4); Platelet Count 227 thou/uL (130-400); RBC Distribution Width 14.4 % (11.5-14.5); Red Blood Cell (RBC) Count 4.24 mill/uL (4.70-6.10); White Blood Cell (WBC) Count 8.9 thou/uL (4.8-10.8)
[2020-01-15 23:55] LABS: ALT (SGPT) 14 U/L (8-55); AST (SGOT) 16 U/L (5-34); Albumin 3.9 g/dL (3.4-4.8); Alkaline Phosphatase 92 U/L (40-110); Anion Gap 15 mmol/L (10-20); BUN (Urea Nitrogen) 19 mg/dL (8.4-25.7); Bilirubin, Total 0.5 mg/dL (0.2-1.2); Calc. Creatinine Clearance 0 mL/min (70-130); Carbon Dioxide 20 mmol/L (23-31); Chloride 105 mmol/L (98-107); Estimated GFR-MDRD 50; Globulin 3.1 g/dL (2.4-3.5); Glucose 106 mg/dL (80-115); Potassium 3.7 mmol/L (3.5-5.1); Sodium 136 mmol/L (136-145)
[2020-01-16] MEDS ORDERED: Ondansetron PF 4 MG/2 ML Vial ONE (00:10)
[2020-01-16 02:18] LABS: Troponin I Less than 0.010 ng/mL (< 0.028)
[2020-01-16 02:43] VITALS: BMI 40.7
[2020-01-16 05:47] LABS: Troponin I Less than 0.010 ng/mL (< 0.028)
--- NOTE | 2020-01-16 07:22 | RAD ---
PORTABLE CHEST: HISTORY: Dizziness. COMPARISON: 10/24/2017. FINDINGS: The lungs are well aerated. There is streaky atelectasis in the left lung base extending to the CP a ngle. I cannot exclude mild infiltrate in this region. The lung hernández are otherwise clear. Vascular markings are normal. Heart and mediastinum unremarkab le. IMPRESSION: Linear markings in the left lung base consistent with atelectasis. Streaky infiltrate cannot be excl uded. POS: AGW
[2020-01-16] MEDS ORDERED: Sodium Chloride 0.9% 1,000 ML IV SCH (07:30)
[2020-01-16] MEDS ORDERED: Levothyroxine Sodium 50 MCG TAB PO SCH (08:15)
[2020-01-16] MEDS: Aspirin Chewable 81 MG TAB PO SCH (08:56)
[2020-01-16] MEDS: Allopurinol 300 MG TAB PO SCH (08:56)
[2020-01-16] MEDS: DULoxetine 30 MG CAP PO SCH (08:56)
[2020-01-16] MEDS: Ramipril 5 MG CAP PO SCH (08:56)
[2020-01-16] MEDS: Losartan 25 MG TAB PO SCH (09:57)
--- NOTE | 2020-01-16 13:32 | HP ---
CHIEF COMPLAINT: Lightheadedness and dizziness. HISTORY OF PRESENT ILLNESS: The patient is a 65-year-old male, who was at home when he began to get severely weak and lightheaded, when he began to stand up, he would nearly pass out. EMS on the scene at his house, noted his blood pressure to be systolically 70. They began IV fluids, and by arrival in the emergency room, his pressure had improved somewhat. He states that he has been drinking water and cocktails. Denies any vomiting, fever, or diarrhea. He has taken his usual blood pressure medicine, which includes diltiazem, and terazosin at hs. He does have swollen legs, but he states that is not unusual. Because he continued to worsen and he agreed to come to emergency room. He has been nauseated but no emesis. This all began while he was sitting and watching TV, and he denied chest pain or any acute findings. In the ER, he underwent fluid resuscitation, felt somewhat better. His initial troponins and lab work were all unremarkable, but further evaluation was warranted since his initial blood pressure was 70/56. PAST MEDICAL HISTORY: severe thermal estrada [facility] [place]. He has hyperlipidemia, hyperuricemia, GERD, history of tobacco use, irritable bowel syndrome, and hypothyroidism. PAST SURGICAL HISTORY: He has had a heart ablation, left knee surgery, and 3 stents put into his heart. PAST PSYCHIATRIC HISTORY: Negative. SOCIAL HISTORY: He drinks socially every week. He has quit using tobacco approximately 7 months ago. FAMILY HISTORY: Significant for his father dying of an PA at 35. ALLERGIES: NO KNOWN DRUG ALLERGIES. MEDICATIONS: He takes: 1. Allopurinol 300 mg daily. 2. Diltiazem 300 mg once a day. 3. Levothyroxine 50 mcg a day. 4. Terazosin 5 mg q hs 5. Aspirin 81 mg daily. 6. Cymbalta 30 mg daily. 7. Rosuvastatin 40 mg at bedtime. 8. Vitamin D replacement. REVIEW OF SYSTEMS: CONSTITUTIONAL: He denies fever, chills, nausea, vomiting, but does admit to generalized weakness. HEENT: Denies drainage from ears, nose, or throat. CHEST: Denies palpitations or chest pain. PULMONARY: Denies cough or shortness of breath. GI: He has some nausea, but denies vomiting or diarrhea. : Denies dysuria or blood in urine or stool. EXTREMITIES: Has pain in his knees, but that is old. SKIN: No new rashes or lesions. NEUROLOGIC: Mentation is intact. Denies any areas of hypesthesia or anesthesia. PHYSICAL EXAMINATION: VITAL SIGNS: On admission, blood pressure 102/54, pulse 92, respirations 18, temperature 98.7. Pain scale now is 0. O2 saturation 96% on room air. While in the ER, his pressure dropped down to 79/51. GENERAL: This is a morbidly obese male, alert, oriented, and cooperative. HEENT: Normocephalic, atraumatic. Pupils are equal, round, and reactive to light with extraocular muscles intact. TMs, nares, and pharynx are clear. NECK: Supple. Trachea midline. CHEST: Clear to auscultation. HEART: Regular rate and rhythm without murmur. ABDOMEN: Soft, nontender without hepatosplenomegaly. : Deferred. EXTREMITIES: Without clubbing, cyanosis, or edema. There is some 2+ swelling in the lower extremities. SKIN: With no acute rashes or lesions. NEUROLOGIC: Cranial nerves are intact. Gait and cerebellar function intact. Sensory exam is intact. Mental status clear. LABORATORY DATA: On admission showed WBCs 8.9, hemoglobin 14.4, hematocrit 41.8 with platelets at 227. Sodium 136, potassium 3.7, chloride 105, CO2 of 20, BUN 19, creatinine 1.41 with a GFR of 50. Liver functions unremarkable. Cortisol 2.2. TSH is 1.68. ASSESSMENT: 1. Hypotension. 2. Low cortisol, hypoadrenalism are noted on cortisol level. 3. Obesity. 4. History of noncompliance with medication. 5. Dyslipidemia. 6. History of coronary artery disease. PLAN: Echocardiogram. Serial re-evaluation of his blood pressures. We will also do an ACTH stimulation test to see if the cortisol level fails to respond and serially re-evaluate him. Job ID: [id number] [facility]
--- NOTE | 2020-01-16 14:57 | EKG ---
Test Reason : Blood Pressure : / mmHG Vent. Rate : 095 BPM Atrial Rate : 095 BPM P-R Int : 172 ms QRS Dur : 084 ms QT Int : 364 ms P-R-T Axes : 085 018 024 degrees QTc Int : 457 ms Normal sinus rhythm Anterior infarct , age undetermined Abnormal ECG Confirmed by JACKSON OLIVA M.D. ([id number]), legal editor RONALD ROGERS ([id number] on 01/16/2020 2:57:31 PM Referred By: Confirmed By:JACKSON OLIVA M.D.
[2020-01-16] MEDS ORDERED: Cosyntropin 250 MCG VIAL SLOW IVP SCH (16:15)
[2020-01-16] MEDS ORDERED: Rosuvastatin 20 MG TAB PO SCH (21:00)
[2020-01-17 04:55] LABS: Cardiac Risk 2.5 (Less than 4.5)
[2020-01-17] MEDS ORDERED: Levothyroxine Sodium 50 MCG TAB PO SCH (06:00)
[2020-01-17 08:19] VITALS: BP 139/79; TEMP 97.8
[2020-01-17] MEDS: DULoxetine 30 MG CAP PO SCH (08:19)
[2020-01-17] MEDS: Ramipril 5 MG CAP PO SCH (08:19)
[2020-01-17] MEDS: Allopurinol 300 MG TAB PO SCH (08:20)
[2020-01-17] MEDS: Aspirin Chewable 81 MG TAB PO SCH (08:20)
[2020-01-17] MEDS: Losartan 25 MG TAB PO SCH (08:20)
--- NOTE | 2020-01-19 11:46 | DIS ---
DATE OF ADMISSION: 01/16/2020 DATE OF DISCHARGE: 01/17/2020 CHIEF COMPLAINT: Chief complaint on admission was hypotension. History of present illness and physical have been dictated. I will resume from there. HOSPITAL COURSE: The patient was placed in telemetry bed, where his vital signs were monitored as well as serial re-evaluation for his blood pressure and response to change in position. Echocardiogram was also performed over the next 24 hours. The echocardiogram returned showing an ejection fraction of 65% to 69%, possible mild diastolic dysfunction, mild dilatation of the left atrium, moderate mitral regurgitation. He had some sclerosis of the aortic valve with mild tricuspid regurgitation, otherwise unremarkable. This was read by Dr. Jason Sellers. Over the next 24 hours, he rested well. On arrival, it was noted that his thyroid functions were good, but his cortisol level was subtherapeutic at 2.2. An ACTH stimulation test was ordered prior to discharge. It returned with normal response of his adrenal glands to the ACTH stimulation test. He was asymptomatic throughout his hospitalization and he was able to be discharged home on 01/17/2020 without further significant episodes of low blood pressure. ASSESSMENT: At the time of discharge, 1. Hypotensive episode. 2. Possible adverse reaction to terazosin or early adrenal failure. PLAN: Discharge plan will be to cut his terazosin dosage in half. Maintain close watch of his blood pressure. Make sure he is well hydrated. Follow up with Dr. Edwards in 1 week for re-evaluation. He is discharged in stable condition. The time required to review his chart, examine and dianetic counselor the patient including reconciliation of all his medication came to 30 minutes. Job ID: [id number] MTDD
== END 2020-01-17 10:32 | disposition home or self-care (01) ==
LOC: ERS 22:42 → 2NO 01-16 01:14
PROVIDERS: ADMIT Specialist; ATTEND Specialist
DX: I95.9 Hypotension, unspecified (principal); E27.40 Unspecified adrenocortical insufficiency; E78.5 Hyperlipidemia, unspecified; I25.10 Atherosclerotic heart disease of native coronary artery without angina pectoris; E79.0 Hyperuricemia without signs of inflammatory arthritis and tophaceous disease; I08.1 Rheumatic disorders of both mitral and tricuspid valves; I35.8 Other nonrheumatic aortic valve disorders; K21.9 Gastro-esophageal reflux disease without esophagitis; E03.9 Hypothyroidism, unspecified; E66.9 Obesity, unspecified; Z68.39 Body mass index [BMI] 39.0-39.9, adult; Z87.891 Personal history of nicotine dependence; Z91.14 Patient's other noncompliance with medication regimen; Z79.899 Other long term (current) drug therapy; Z95.5 Presence of coronary angioplasty implant and graft
CPT/HCPCS: 71045; 80053; 80061; 80400; 82533 ×2; 83735; 84443; 84484 ×3; 85025; 93005; 93306; 96361; 96374; 99285; G0378 ×3; 36415; J0834; J2405

== ENCOUNTER 2020-12-02 11:01 | Day surgery (SDC) | payer MEDICARE, OTHER ==
[~2020-12-02 11:01] MED LIST: EPINEPHrine 0.3 MG in Ophthalmic Irrigation Solution 500 ML IRR SCH; Fentanyl 100 MCG/2 ML VIAL ONE; Midazolam HCl 2 mg/2 ml Vial ONE
[2020-12-02] MEDS ORDERED: Phenylephrine 2.5% Ophth Soln 5 ML BOT ONE (11:28)
[2020-12-02] MEDS ORDERED: Cyclopentolate 1% Opth Drop 2 ML BOT ONE (11:28)
[2020-12-02] MEDS ORDERED: Triamcinolone 40 MG/ML VIAL ONE (12:49)
[2020-12-02] MEDS ORDERED: CEFAZOLIN 1 GM VIAL ONE (12:49)
[2020-12-02] MEDS ORDERED: Bupivacaine PF 0.75% SDV 10 ML ONE (12:49)
[2020-12-02] MEDS ORDERED: Lidocaine 4% PF 5 ML AMP ONE (12:49)
[2020-12-02] MEDS ORDERED: PROPOFOL 200 MG/20 ML VIAL ONE (12:49)
[2020-12-02] MEDS ORDERED: Maxitrol 0.1% Opth Oint 3.5 GM TUBE ONE (12:49)
[2020-12-02] MEDS ORDERED: Lidocaine 1% PF 5 ML VIAL ONE (12:49)
== END 2020-12-02 14:25 | disposition home or self-care (01) ==
LOC: SDC 11:01
PROVIDERS: ATTEND Ophthalmology Retina Specialist
PROC: 08T43ZZ Resection of Right Vitreous, Percutaneous Approach (ICD-10-PCS; principal; 2020-12-02)
DX: H33.021 Retinal detachment with multiple breaks, right eye (principal); Z79.899 Other long term (current) drug therapy
CPT/HCPCS: 67025; J0171; J0690; J2250; J2704; J3010; J3301; J3490

== ENCOUNTER 2021-05-07 09:10 | Outpatient (CLI) | payer MEDICARE, OTHER ==
[2021-05-07 10:05] LABS: #Eosinphils 0.3 10x3/uL (0.0-0.5); #Monocytes 0.7 10x3/uL (0.0-1.1); #Neutrophils 4.1 10x3/uL (1.5-8.4); %Basophils 0.6 % (0.0-2.0); %Eosinophils 4.4 % (0.0-6.0); %Lymphocytes 25.9 % (18.0-47.0); %Monocytes 9.6 % (0.0-10.0); %Neutrophils 59.2 % (40.0-75.0); Mean Corpuscular HGB CONC 33.5 g/dL (32.0-36.0); Mean Corpuscular Hemoglobin 31.7 pg (27.0-33.0); Mean Corpuscular Volume 94.6 fl (81.2-95.1); Mean Platelet Volume 11.3 fl (7.4-10.4); Platelet Count 165 10x3/uL (150-450); White Blood Cell (WBC) Count 6.9 10x3/uL (3.5-10.5)
[2021-05-07 10:32] LABS: ALT (SGPT) 28 U/L (8-55); AST (SGOT) 26 U/L (5-34); Albumin 3.9 g/dL (3.4-4.8); Alkaline Phosphatase 87 U/L (40-110); Anion Gap 14 mmol/L (10-20); BUN (Urea Nitrogen) 19 mg/dL (8.4-25.7); Bilirubin, Total 0.6 mg/dL (0.2-1.2); Calc. Creatinine Clearance 0 mL/min (70-130); Calcium 9.5 mg/dL (7.8-10.44); Carbon Dioxide 20 mmol/L (23-31); Cardiac Risk 2.8 (Less than 4.5); Chloride 112 mmol/L (98-107); Cholesterol 121 mg/dl (< 200 Desired); Globulin 2.6 g/dL (2.4-3.5); Glucose 111 mg/dL (80-115); HDL Cholesterol 44 mg/dL (>60 Neg Risk); LDL Cholesterol, Calculated 55 mg/dL; Potassium 4.6 mmol/L (3.5-5.1); Protein, Total 6.5 g/dL (5.8-8.1); Sodium 141 mmol/L (136-145); Triglycerides 108 mg/dL (Less than 150)
[2021-05-07 23:40] LABS: SARS-CoV-2 PCR by NAA Not Detected (NotDetected)
== END 2021-05-07 09:11 | disposition home or self-care (01) ==
LOC: LABBT 09:10
PROVIDERS: ATTEND Internal Medicine Cardiovascular Disease
DX: Z01.812 Encounter for preprocedural laboratory examination (principal); Z20.822 Contact with and (suspected) exposure to COVID-19
CPT/HCPCS: 80053; 80061; 85025; U0003; U0005

== ENCOUNTER 2021-09-02 19:04 | Observation (INO) | payer MEDICARE, OTHER ==
[2021-09-02] MEDS ORDERED: cefTRIAXone\\ROCEPHIN 2 GM VIAL ONE (19:22)
[2021-09-02 19:45] LABS: Hemoglobin 12.8 g/dL (14.0-18.0); Mean Corpuscular HGB CONC 34.4 g/dL (32.0-36.0); Mean Corpuscular Hemoglobin 33.5 pg (27.0-31.0); Mean Corpuscular Volume 97.5 fL (78.0-98.0); Platelet Count 195 thou/uL (130-400); RBC Distribution Width 14.2 % (11.5-14.5); Red Blood Cell (RBC) Count 3.81 mill/uL (4.70-6.10)
[2021-09-02 20:01] LABS: Bilirubin Negative (Negative); Blood, Urine Negative (Negative); Clarity Clear (Clear); Glucose, Urine (Dipstick) Normal (Negative); Ketone, Urine Negative (Negative); Leukocyte 250 Leu/uL (Negative); Nitrite Negative (Negative); Protein, Urine (Dipstick) 20 mg/dL (Neg-Trace); RBC/HPF 0-3 HPF (0-3); Specific Gravity, Urine 1.022 (1.002-1.036); Squamous Epithelial 0-3 HPF (0-3); Urobilinogen Normal mg/dL (Less than 2); WBC/HPF 21-50 HPF (0-3)
[2021-09-02 20:08] LABS: Bacteria/HPF 1+ HPF (None Seen)
[2021-09-02 20:08] LABS: ALT (SGPT) 23 U/L (8-55); AST (SGOT) 28 U/L (5-34); Albumin 3.4 g/dL (3.4-4.8); Alkaline Phosphatase 71 U/L (40-110); Anion Gap 13 mmol/L (10-20); BUN (Urea Nitrogen) 20 mg/dL (8.4-25.7); Bilirubin, Total 0.5 mg/dL (0.2-1.2); Calc. Creatinine Clearance 0 mL/min (70-130); Carbon Dioxide 21 mmol/L (23-31); Chloride 108 mmol/L (98-107); Globulin 3.9 g/dL (2.4-3.5); Glucose 123 mg/dL (80-115); Potassium 4.3 mmol/L (3.5-5.1); Protein, Total 7.3 g/dL (5.8-8.1); Sodium 138 mmol/L (136-145)
[2021-09-02 20:11] LABS: Band 19 % (5-11); Eosinophils 1 % (0-10); Lymphocytes 3 % (21-51); MDiff Complete? YES; Mean Platelet Volume 8.3 fL (7.4-10.4); Monocytes 6 % (0-10); Neutrophil 70 % (42-75); Platelet Morphology Comment Appears Adequate; RBC Morphology Normal; White Blood Cell (WBC) Count 21.1 thou/uL (4.8-10.8)
[2021-09-02 23:34] VITALS: BMI 35.6
[2021-09-03 08:24] VITALS: TEMP 97.9
[2021-09-03] MEDS ORDERED: cefTRIAXone\\ROCEPHIN 1 GM in Sodium Chloride 0.9% 100 ML IVPB SCH (08:30)
[2021-09-03 08:38] LABS: #Eosinphils 0.8 thou/uL (0.0-0.7); #Lymphocytes 0.9 thou/uL (1.20-3.40); #Monocytes 0.7 thou/uL (0.11-0.59); #Neutrophils 8.8 thou/uL (1.40-6.50); %Basophils 0.3 % (0.0-1.0); %Eosinophils 7.2 % (0.0-10.0); %Lymphocytes 8.2 % (21.0-51.0); %Monocytes 6.2 % (0.0-10.0); Hemoglobin 12.5 g/dL (14.0-18.0); Mean Corpuscular HGB CONC 32.9 g/dL (32.0-36.0); Mean Corpuscular Hemoglobin 32.1 pg (27.0-31.0); Mean Corpuscular Volume 97.5 fL (78.0-98.0); Mean Platelet Volume 8.9 fL (7.4-10.4); Platelet Count 206 thou/uL (130-400); RBC Distribution Width 14.2 % (11.5-14.5); Red Blood Cell (RBC) Count 3.88 mill/uL (4.70-6.10); White Blood Cell (WBC) Count 11.3 thou/uL (4.8-10.8)
[2021-09-03 08:59] LABS: Anion Gap 13 mmol/L (10-20); BUN (Urea Nitrogen) 18 mg/dL (8.4-25.7); Calc. Creatinine Clearance 0 mL/min (70-130); Calcium 9.2 mg/dL (7.8-10.44); Carbon Dioxide 19 mmol/L (23-31); Chloride 110 mmol/L (98-107); Glucose 96 mg/dL (80-115); Potassium 3.6 mmol/L (3.5-5.1); Sodium 138 mmol/L (136-145)
[2021-09-03 11:45] LABS: SARS-CoV-2 PCR by NAA Not Detected (NotDetected)
[2021-09-03 11:54] VITALS: BP 120/69
== END 2021-09-03 16:15 | disposition home or self-care (01) ==
LOC: ERS 19:04 → T4-A 21:45
PROVIDERS: ADMIT Specialist; ATTEND Specialist
DX: A41.9 Sepsis, unspecified organism (principal); N41.9 Inflammatory disease of prostate, unspecified; N39.0 Urinary tract infection, site not specified; R41.0 Disorientation, unspecified; E78.5 Hyperlipidemia, unspecified; E78.00 Pure hypercholesterolemia, unspecified; I10 Essential (primary) hypertension; I25.2 Old myocardial infarction; F17.210 Nicotine dependence, cigarettes, uncomplicated; Z79.82 Long term (current) use of aspirin; Z79.899 Other long term (current) drug therapy; Z95.5 Presence of coronary angioplasty implant and graft; Z20.822 Contact with and (suspected) exposure to COVID-19
CPT/HCPCS: 71045; 80048; 80053; 83605; 84484; 85025 ×2; 87040; 87086; 93005; 96365; 96366; 96376; 99285; G0378 ×3; U0003; U0005; 36415; 81003; 81015; J0696; J3490

== ENCOUNTER 2024-09-06 08:54 | Outpatient (CLI) | payer MEDICARE | END 2024-09-06 08:55 | disposition home or self-care (01) | LOC: ULT 08:54 | PROVIDERS: ATTEND Specialist | DX: N41.1 Chronic prostatitis (principal) | CPT/HCPCS: 76770 ==

== ENCOUNTER 2025-09-10 09:21 | Outpatient (CLI) | payer MEDICARE | END 2025-09-10 09:22 | disposition home or self-care (01) | LOC: SCSRAD 09:21 | PROVIDERS: ATTEND Urology | DX: R06.02 Shortness of breath (principal); R91.8 Other nonspecific abnormal finding of lung field | CPT/HCPCS: 71046 ==